=== PATIENT | male | born 1940 | race Caucasian/White ===

== ENCOUNTER 2016-07-23 10:28 | Outpatient (CLI) | payer OTHER, BC ==
[~2016-07-23 10:28] MED LIST: AMLO5TAB4 PO; ASPI-1063 PO; ATEN50TA PO; BENA20TA2 PO; DUTA0.5C PO; HYDR12.5 PO; HYT1 GT; LEVO100T9 PO; SIMV20TA6 PO; SPIR25TA PO
== END 2016-07-23 18:21 | disposition home or self-care (01) ==
LOC: SRD 10:28
PROVIDERS: ATTEND Family Medicine
DX: I10 Essential (primary) hypertension (principal); E78.5 Hyperlipidemia, unspecified
CPT/HCPCS: 71020-TC

== ENCOUNTER 2018-10-20 17:26 | Emergency (ER) | payer BC, OTHER ==
[~2018-10-20] VITALS: Ht 205.7 cm; Wt 86.2 kg
[~2018-10-20 17:26] MED LIST changes: -ASPI-1063 PO; +ASPI-1154 PO; -BENA20TA2 PO; +BENA20TA9 PO
[2018-10-20 17:35] VITALS: BP_SYST 119
[2018-10-20 18:28] VITALS: BP_SYST 119
== END 2018-10-20 18:28 | disposition home or self-care (01) ==
LOC: SED 17:26
DX: S90.415A Abrasion, left lesser toe(s), initial encounter (principal); I10 Essential (primary) hypertension; Z79.899 Other long term (current) drug therapy; E78.5 Hyperlipidemia, unspecified; Z90.89 Acquired absence of other organs; X58.XXXA Exposure to other specified factors, initial encounter; Y93.89 Activity, other specified; Y92.89 Other specified places as the place of occurrence of the external cause; Y99.8 Other external cause status
CPT/HCPCS: 99283

== ENCOUNTER 2020-01-28 08:48 | Outpatient (CLI) | payer BC ==
[~2020-01-28 08:48] MED LIST changes: -ASPI-1154 PO; +ASPI-1457 PO; +SIMV-43 PO; -SIMV20TA6 PO
== END 2020-01-28 20:02 | disposition home or self-care (01) ==
LOC: SUS 08:48
PROVIDERS: ATTEND Internal Medicine
DX: N13.30 Unspecified hydronephrosis (principal); N18.30 Chronic kidney disease, stage 3 unspecified
CPT/HCPCS: 76770

== ENCOUNTER 2021-04-10 11:38 | Outpatient (CLI) | payer BC | END 2021-04-10 20:10 | disposition home or self-care (01) | LOC: SRD 11:38 | PROVIDERS: ATTEND Family Medicine | DX: S99.921A Unspecified injury of right foot, initial encounter (principal); X58.XXXA Exposure to other specified factors, initial encounter; Y93.89 Activity, other specified; Y92.89 Other specified places as the place of occurrence of the external cause; Y99.8 Other external cause status ==

== ENCOUNTER 2021-09-02 09:20 | Emergency (ER) | payer BC ==
[~2021-09-02] VITALS: Ht 175.3 cm; Wt 91.6 kg
[~2021-09-02 09:20] MED LIST changes: +BENA-6 PO; -BENA20TA9 PO
[2021-09-02 09:24] VITALS: BP_SYST 122
--- NOTE | 2021-09-02 09:24 | NUR ---
PT TRIAGED AND PLACED IN ED LOBBY AWAITING AVAILBLE BED IN MAIN ED
--- NOTE | 2021-09-02 10:30 | NUR ---
PT STANDING IN MAIN LOBBY WITH FAMILY, NO DISTRESS NOTED.
== END 2021-09-02 11:30 | disposition left against medical advice (07) ==
LOC: SED 09:20
DX: M54.9 Dorsalgia, unspecified (principal); Z53.21 Procedure and treatment not carried out due to patient leaving prior to being seen by health care provider